=== PATIENT | female | born 1955 | race Two or more races ===

== ENCOUNTER 2017-07-23 12:55 | Emergency (ER) | payer MEDICARE ==
[2017-07-23 12:55] VITALS: BMI 25.9
[2017-07-23 13:10] VITALS: BP 130/77; PULSE 100; RESP 20; TEMP 97.7; O2SAT 100
[2017-07-23] MEDS ORDERED: Lidocaine 1% Inj (20ml) INFIL ONE (13:24)
[2017-07-23] MEDS ORDERED: Lidocaine 1% Inj (20ml) ONE (13:28)
[2017-07-23] MEDS ORDERED: Bacitracin 500 Units/gm Oint Foilpak UD TOP ONE (14:19)
[2017-07-23] MEDS ORDERED: Bacitracin 500 Units/gm Oint Foilpak UD ONE (14:22)
--- NOTE | 2017-07-23 17:44 | C.PDOC ---
History Of Present Illness 62 yr old female presents to the ER s/p trip and fall, complaining of 2 wounds to the right lower leg. Patient denies symptoms prior to the fall, head injury, LOC, neck pain, back pain, weakness or numbness. Time Seen by Provider: 07/23/17 13:12 Chief Complaint (Nursing): Lower Extremity Problem/Injury History Per: Patient History/Exam Limitations: no limitations Onset/Duration Of Symptoms: Sudden Onset Current Symptoms Are (Timing): Still Present Recent travel outside of the [place]: No Past Medical History Reviewed: Historical Data, Nursing Documentation, Vital Signs Vital Signs: Last Vital Signs Temp 97.7 F 07/23/17 13:06 Pulse 100 H 07/23/17 13:06 Resp 20 07/23/17 13:06 BP 130/77 07/23/17 13:06 Pulse Ox 100 07/23/17 17:47 - Medical History PMH: Anxiety, Asthma, COPD, Diabetes, Fibromyalgia, Fractures (ribs), Gastritis , HTN, Hypercholesterolemia, Osteoporosis, Peripheral Edema Surgical History: Back Surgery, Endoscopy - [facility] Procedures CLOSURE SKIN & SUBCUTANEOUS NEC (07/14/13) FLUOROSCOPY OF LEFT HEART USING LOW OSMOLAR CONTRAST (12/08/16) FLUOROSCOPY OF MULT COR ART USING L OSM CONTRAST (12/08/16) MEASURE OF CARDIAC SAMPL & PRESSURE, L HEART, PERC APPROACH (12/08/16) OTHER LOCAL DESTRUC SKIN (08/29/14) TETANUS TOXOID ADMINIST (07/14/13) Family History: States: No Known Family Hx - Social History Hx Tobacco Use: No Hx Alcohol Use: No Hx Substance Use: No - Immunization History Hx Tetanus Toxoid Vaccination: No Hx Influenza Vaccination: No Hx Pneumococcal Vaccination: No Review Of Systems Except As Marked, All Systems Reviewed And Found Negative. Musculoskeletal: Negative for: Neck Pain, Back Pain Skin: Positive for: Other (2 wounds to the right lower leg) Neurological: Negative for: Weakness, Numbness Physical Exam - Physical Exam Appears: Non-toxic, No Acute Distress Skin: Warm, Dry, No Rash, Other (Right Lower Leg - 1cm abrasion in diameter. 3cm laceration. ) Head: Atraumatic, Normacephalic Oral Mucosa: Moist Chest: Symmetrical, No Tenderness Cardiovascular: Rhythm Regular, No Murmur Respiratory: Normal Breath Sounds, No Rales, No Rhonchi, No Stridor, No Wheezing Extremity: Normal ROM, No Swelling Neurological/Psych: Oriented x3, Normal Speech, Normal Motor, Normal Sensation Gait: Steady ED Course And Treatment O2 Sat by Pulse Oximetry: 100 (RA) Pulse Ox Interpretation: Normal Progress Note: Wounds are cleaned and dressed with Bacitrain. Laceration - Laceration Repair Right Lower Leg Wound Length (In cm): 3 Description Of Wound: Linear Anesthesia: Lidocaine 1% Wound Examination: Irrigated With Saline, No Tendon Injury With Wound Exploration Wound Closure: Suture (6) Suture Technique And Material Used: Interrupted, Nylon (4-0) Wound Complexity: Simple Medical Decision Making Medical Decision Making: PLAN: * Clindamycin PO Disposition - Disposition Disposition: HOME/ ROUTINE Disposition Time: 14:20 Condition: IMPROVED Additional Instructions: Thank you for letting us take care of you today. Your provider was Dr. Fischer. You were treated for skin abrasions/laceration. The emergency medical care you received today was directed at your acute symptoms. If you were prescribed any medication, please fill it and take as directed. It may take several days for your symptoms to resolve. Return to the Emergency Department if your symptoms worsen, do not improve, or if you have any other problems. Please contact your doctor or call one of the physicians/clinics you have been referred to that are listed on the Patient Visit Information form that is included in your discharge packet. Bring any paperwork you were given at discharge with you along with any medications you are taking to your follow up visit. Our treatment cannot replace ongoing medical care by a primary care provider (PCP) outside of the emergency department. Thank you for allowing the [facility] team to be part of your care today. Follow up with your doctor or the emergency room in 7 days for suture removal. Follow up right away if there are signs of infection. Take the antibiotic as directed. Prescriptions: Clindamycin [Cleocin] 300 mg PO Q6 #20 cap Instructions: Care For Your Stitches (ED) Forms: [employer] (Singaporean) - Clinical Impression Clinical Impression: Laceration of leg - Scribe Statement The provider has reviewed the documentation as recorded by the Igor Rivers Provider Attestation: All medical record entries made by the Shahidibjack were at my direction and personally dictated by me. I have reviewed the chart and agree that the record accurately reflects my personal performance of the history, physical exam, medical decision making, and the department course for this patient. I have also personally directed, reviewed, and agree with the discharge instructions and disposition.
== END 2017-07-23 14:33 | disposition home or self-care (01) ==
LOC: C.ER 12:55
DX: S81.811A Laceration without foreign body, right lower leg, initial encounter (principal); W01.0XXA Fall on same level from slipping, tripping and stumbling without subsequent striking against object, initial encounter; Y93.89 Activity, other specified; Y92.89 Other specified places as the place of occurrence of the external cause

== ENCOUNTER 2017-07-30 08:44 | Emergency (ER) | payer MEDICARE ==
[2017-07-30 08:51] VITALS: BMI 24.7
[2017-07-30 08:55] VITALS: BP 122/78; PULSE 99; RESP 18; TEMP 97.3; O2SAT 98
--- NOTE | 2017-07-30 11:27 | C.PDOC ---
History Of Present Illness 62 yr old female presents to the ER for suture removal from the right lower leg which were placed 7 days ago. Patient denies drainage from the area, redness around the wound, fever, chills, weakness or numbness. Time Seen by Provider: 07/30/17 09:00 Chief Complaint (Nursing): Suture/Staple Removal History Per: Patient History/Exam Limitations: no limitations Onset/Duration Of Symptoms: Days Ago (7) Past Medical History Reviewed: Historical Data, Nursing Documentation, Vital Signs Vital Signs: Last Vital Signs Temp 97.3 F L 07/30/17 08:52 Pulse 99 H 07/30/17 08:52 Resp 18 07/30/17 08:52 BP 122/78 07/30/17 08:52 Pulse Ox 98 07/30/17 11:30 - Medical History PMH: Anxiety, Asthma, COPD, Diabetes, Fibromyalgia, Fractures (ribs), Gastritis , HTN, Hypercholesterolemia, Osteoporosis, Peripheral Edema Surgical History: Back Surgery, Endoscopy - [facility] Procedures CLOSURE SKIN & SUBCUTANEOUS NEC (07/14/13) FLUOROSCOPY OF LEFT HEART USING LOW OSMOLAR CONTRAST (12/08/16) FLUOROSCOPY OF MULT COR ART USING L OSM CONTRAST (12/08/16) MEASURE OF CARDIAC SAMPL & PRESSURE, L HEART, PERC APPROACH (12/08/16) OTHER LOCAL DESTRUC SKIN (08/29/14) TETANUS TOXOID ADMINIST (07/14/13) Family History: States: No Known Family Hx - Social History Hx Tobacco Use: No Hx Alcohol Use: No Hx Substance Use: No - Immunization History Hx Tetanus Toxoid Vaccination: No Hx Influenza Vaccination: No Hx Pneumococcal Vaccination: No Review Of Systems Except As Marked, All Systems Reviewed And Found Negative. Constitutional: Negative for: Fever, Chills Skin: Positive for: Other ((+) Sutures to felicia right lower leg) Neurological: Negative for: Weakness, Numbness Physical Exam - Physical Exam Appears: Non-toxic, No Acute Distress Skin: Warm, Dry, Other ((+) Right lower leg, well healed laceration with [address] Head: Atraumatic, Normacephalic Oral Mucosa: Moist Chest: Symmetrical, No Tenderness Cardiovascular: Rhythm Regular, No Murmur Respiratory: Normal Breath Sounds, No Rales, No Rhonchi, No Stridor, No Wheezing Extremity: Normal ROM, No Swelling Neurological/Psych: Oriented x3, Normal Speech, Normal Motor ED Course And Treatment O2 Sat by Pulse Oximetry: 98 (RA) Pulse Ox Interpretation: Normal Progress Note: 5 sutures were removed. Patient tolerated the procedure well. Disposition - Disposition Disposition: HOME/ ROUTINE Disposition Time: 09:05 Condition: GOOD Additional Instructions: Thank you for letting us take care of you today. Your provider was Dr. Fischer. You were treated for suture removal. The emergency medical care you received today was directed at your acute symptoms. If you were prescribed any medication, please fill it and take as directed. It may take several days for your symptoms to resolve. Return to the Emergency Department if your symptoms worsen, do not improve, or if you have any other problems. Please contact your doctor or call one of the physicians/clinics you have been referred to that are listed on the Patient Visit Information form that is included in your discharge packet. Bring any paperwork you were given at discharge with you along with any medications you are taking to your follow up visit. Our treatment cannot replace ongoing medical care by a primary care provider (PCP) outside of the emergency department. Thank you for allowing the [facility] team to be part of your care today. Use the steri-strips for the next 3-4 days until completed closed. Keep area clean and dry. Follow up with your primary doctor or the emergency room if you have any concerns. Instructions: Stitches Removal (ED) Forms: [employer] (Israeli) - Clinical Impression Clinical Impression: Removal of suture - Scribe Statement The provider has reviewed the documentation as recorded by the Scribe Racquel Rivers Provider Attestation: All medical record entries made by the Shahidibjack were at my direction and personally dictated by me. I have reviewed the chart and agree that the record accurately reflects my personal performance of the history, physical exam, medical decision making, and the department course for this patient. I have also personally directed, reviewed, and agree with the discharge instructions and disposition.
== END 2017-07-30 09:14 | disposition home or self-care (01) ==
LOC: C.ER 08:44
DX: Z48.02 Encounter for removal of sutures (principal)

== ENCOUNTER 2017-11-07 11:56 | Observation (INO) | payer MEDICARE ==
[2017-11-07 11:56] VITALS: BMI 24.7
[2017-11-07] MEDS ORDERED: Sodium Chloride 0.9% 500 ML IV ONE (13:21)
[2017-11-07 13:44] LABS: BASO # 0.1 K/uL (0.0-0.2); BASO % 0.4 % (0.0-2.0); EOS % 0.1 % (0.0-4.0); HEMOGLOBIN 13.4 g/dL (11.0-16.0); LYMPH # 1.9 K/uL (1.0-4.3); LYMPH % 14.5 % (20.0-40.0); MEAN CELL VOLUME 81.6 fL (81.0-99.0); MEAN CORPUSCULAR HEMOGLOBIN 27.2 pg (27.0-31.0); MEAN CORPUSCULAR HGB CONC 33.3 g/dL (33.0-37.0); MEAN PLATELET VOLUME 10.4 fL (7.2-11.7); MONO # 1.3 K/uL (0.0-0.8); MONO % 9.8 % (0.0-10.0); NEUT % 75.2 % (50.0-75.0); RBC 4.93 Mil/uL (3.80-5.20); RED CELL DISTRIBUTION WIDTH 13.8 % (11.5-14.5); WHITE BLOOD COUNT 13.3 K/uL (4.8-10.8)
--- NOTE | 2017-11-07 13:45 | RAD ---
PROCEDURE: CHEST RADIOGRAPH, 1 VIEW HISTORY: SOB COMPARISON: 12/06/2016 FINDINGS: LUNGS: Interval nodular contour characteristics suggested to prior near left basal atelectasis. Concomitant infiltrate here and/or progressive atelectatic changes or other pulmonary nodular parenchymal pathology needs to be considered. Shallow lung volumes. Smaller 2 to 4 mm pulmonary nodules left mid and upper lung zone noted. PLEURA: No pneumothorax. Trace left inferolateral pleural thickening and/or trace fluid probable. No prominent pleural effusion CARDIOVASCULAR: Minimal cardiomegaly no josefina pulmonary venous congestion OSSEOUS STRUCTURES: Bilateral shoulder arthrosis. Eft calcific rotator cuff tendinopathy versus calcific bursitis. Possible bone islands - glenoid and/or humeral head related VISUALIZED UPPER ABDOMEN: Normal. OTHER FINDINGS: None. IMPRESSION: Left basal nodular opacity (possible developing small infiltrate and/or rounded atelectasis here) with concomitant subsegmental discoid like atelectatic changes. Follow-up recommended Left mid and upper lung zone 2 to 4 mmnonspecific pulmonary nodules. The most inferior 1 appears present and 2014 Bilateral shoulder arthrosis -left calcific bursitis and/or calcific rotator cuff tendinopathy
[2017-11-07 14:04] LABS: ALB/GLOB RATIO 0.9 (1.0-2.1); ALBUMIN 3.8 g/dL (3.5-5.0); ALT/SGPT 29 U/L (9-52); AST/SGOT 23 U/L (14-36); BLOOD UREA NITROGEN 14 mg/dL (7-17); CALCIUM 7.8 mg/dl (8.6-10.4); GFR AFRICAN-AMERICAN > 60; GFR NON-AFRICAN AMERICAN > 60
[2017-11-07 14:11] LABS: B-TYPE NATRIURETIC PEPTIDE 203 pg/mL (0-900)
[2017-11-07 15:15] LABS: SQUAMOUS EPITHIAL 2 /hpf (0-5); URINE AMORPHOUS SEDIMENT RARE /ul (<OCC); URINE BILIRUBIN NEGATIVE (NEGATIVE); URINE BLOOD NEGATIVE (NEGATIVE); URINE CLARITY Hazy (Clear); URINE COLOR Amber (YELLOW); URINE GLUCOSE (UA) NORMAL (Normal); URINE LEUKOCYTE ESTERASE NEG Leu/uL (Negative); URINE NITRATE NEGATIVE (NEGATIVE); URINE PROTEIN 1+ mg/dL (NEGATIVE)
[2017-11-07] MEDS ORDERED: Azithromycin 500 MG in Sodium Chloride 0.9% 250 ML IVPB STA (15:23)
--- NOTE | 2017-11-07 17:01 | C.PDOC ---
History Of Present Illness 62 y/o female, with history of COPD, asthma, HTN, and diabetes, presents to the ER complaining of cough, nausea, and vomiting which has been present for 8 days. Patient reports that she has been vomiting 10 to 20 times a day.Patient states that she felt febrile but she did not take her temperature. Patient reports that she has associated chest pain w/ coughing and feels some SOB. Patient denies that she has any abdominal pain and any other medical complaints. Time Seen by Provider: 11/07/17 12:35 Chief Complaint (Nursing): Flu-like Symptoms History Per: Patient History/Exam Limitations: no limitations Onset/Duration Of Symptoms: Days Current Symptoms Are (Timing): Still Present Associated Symptoms: Cough, Nausea, Vomiting Past Medical History Reviewed: Historical Data, Nursing Documentation, Vital Signs Vital Signs: Last Vital Signs Temp 98.1 F 11/07/17 17:22 Pulse 105 H 11/07/17 17:22 Resp 18 11/07/17 17:22 BP 103/75 11/07/17 17:22 Pulse Ox 95 11/07/17 17:30 - Medical History PMH: Anxiety, Asthma, COPD, Diabetes, Fibromyalgia, Fractures (ribs), Gastritis , HTN, Hypercholesterolemia, Osteoporosis, Peripheral Edema Denies: Chronic Kidney Disease Surgical History: Back Surgery, Endoscopy - [facility] Procedures CLOSURE SKIN & SUBCUTANEOUS NEC (07/14/13) FLUOROSCOPY OF LEFT HEART USING LOW OSMOLAR CONTRAST (12/08/16) FLUOROSCOPY OF MULT COR ART USING L OSM CONTRAST (12/08/16) MEASURE OF CARDIAC SAMPL & PRESSURE, L HEART, PERC APPROACH (12/08/16) OTHER LOCAL DESTRUC SKIN (08/29/14) TETANUS TOXOID ADMINIST (07/14/13) Family History: States: No Known Family Hx - Social History Hx Tobacco Use: No Hx Alcohol Use: No Hx Substance Use: No - Immunization History Hx Tetanus Toxoid Vaccination: No Hx Influenza Vaccination: No Hx Pneumococcal Vaccination: No Review Of Systems Except As Marked, All Systems Reviewed And Found Negative. Constitutional: Negative for: Fever, Chills Respiratory: Positive for: Cough, Shortness of Breath Gastrointestinal: Positive for: Nausea, Vomiting. Negative for: Abdominal Pain , Diarrhea Physical Exam - Physical Exam Appears: Non-toxic, No Acute Distress, Other (mildly ill) Skin: Normal Color, Warm Head: Atraumatic, Normacephalic Eye(s): bilateral: Normal Inspection, PERRL Ear(s): Bilateral: Normal Nose: Normal Oral Mucosa: Moist Throat: Normal, No Erythema, No Exudate Neck: Supple Chest: Symmetrical Cardiovascular: Rhythm Regular Respiratory: Normal Breath Sounds, No Accessory Muscle Use, No Rales, No Wheezing Gastrointestinal/Abdominal: Normal Exam, Soft, No Tenderness Extremity: Normal ROM, No Tenderness, No Pedal Edema, No Swelling Neurological/Psych: Oriented x3, Normal Speech, Normal Cognition, Normal Motor, Normal Sensation ED Course And Treatment - Laboratory Results Result Diagrams: 11/07/17 13:30 11/07/17 13:30 O2 Sat by Pulse Oximetry: 95 (RA) Pulse Ox Interpretation: Normal - Other Rad No standard instances X-Ray: Viewed By Me, Read By Radiologist Interpretation: PROCEDURE: CHEST RADIOGRAPH, 1 VIEW. HISTORY: SOB. COMPARISON: 12/06/2016. FINDINGS: LUNGS: Interval nodular contour characteristics suggested to prior near left basal atelectasis. Concomitant infiltrate here and/or progressive atelectatic changes or other pulmonary nodular parenchymal pathology needs to be considered. Shallow lung volumes. Smaller 2 to 4 mm pulmonary nodules left mid and upper lung zone noted. PLEURA : No pneumothorax. Trace left inferolateral pleural thickening and/or trace fluid probable. No prominent pleural effusion. CARDIOVASCULAR: Minimal cardiomegaly no josefina pulmonary venous congestion. OSSEOUS STRUCTURES: Bilateral shoulder arthrosis. Eft calcific rotator cuff tendinopathy versus calcific bursitis. Possible bone islands - glenoid and/or humeral head related. VISUALIZED UPPER ABDOMEN: Normal. OTHER FINDINGS: None. IMPRESSION: Left basal nodular opacity (possible developing small infiltrate and/or rounded atelectasis here) with concomitant subsegmental discoid like atelectatic changes. Follow-up recommended. Left mid and upper lung zone 2 to 4 mmnonspecific pulmonary nodules. The most inferior 1 appears present and 2014. Bilateral shoulder arthrosis -left calcific bursitis and/or calcific rotator cuff tendinopathy Medical Decision Making Medical Decision Making: Impression: Influenza-like illness Plan: --CXR --Antibiotics --Nebulizer Treatment -- Observation Disposition Discussed With : Matt Juarez Counseled Patient/Family Regarding: Studies Performed - Disposition Disposition: HOSPITALIZED Disposition Time: 17:00 Condition: GUARDED - Clinical Impression Clinical Impression: Influenza-like illness, COPD exacerbation - Scribe Statement The provider has reviewed the documentation as recorded by the Scribe Jeanine Paniagua Provider Attestation: All medical record entries made by the Scribe were at my direction and personally dictated by me. I have reviewed the chart and agree that the record accurately reflects my personal performance of the history, physical exam, medical decision making, and the department course for this patient. I have also personally directed, reviewed, and agree with the discharge instructions and disposition. Decision To Admit - Pt Status Changed To: Hospital Disposition Of: Observation - . Bed Request Type: Regular Admitting Physician: Matt Juarez Patient Diagnosis: Influenza-like illness, COPD exacerbation
[2017-11-07] MEDS ORDERED: Albuterol-Ipratrop 3 mg / 0.5 (3 ml) UD ONE ×2 (17:34→20:09)
[2017-11-07] MEDS: Albuterol-Ipratrop 3 mg / 0.5 (3 ml) UD IH SCH (17:56)
[2017-11-07] MEDS ORDERED: Home Med 1 UNIT (Naproxen [Naprosyn] 1 TAB) PO PRN (19:23)
[2017-11-07] MEDS: Fluticasone-Salmeterol 250-50mcg Diskus IH SCH ×2 (19:29→20:06)
[2017-11-07] MEDS: Albuterol HFA 90 mcg/actuation (8 g) IH SCH ×2 (19:29→20:06)
[2017-11-07] MEDS: Albuterol-Ipratrop 3 mg / 0.5 (3 ml) UD INH SCH (20:10)
[2017-11-08] MEDS: (Novolog) Insulin Aspart, Recombinant 100 u/ml 10 ml vial SC SCH ×5 (00:02→21:36)
[2017-11-08] MEDS: Albuterol-Ipratrop 3 mg / 0.5 (3 ml) UD INH SCH ×7 (00:18→23:30)
[2017-11-08] MEDS ORDERED: Albuterol-Ipratrop 3 mg / 0.5 (3 ml) UD ONE (00:23)
[2017-11-08] MEDS: guaiFENesin 200 mg/10 ml Syrup UD PO PRN (04:05)
[2017-11-08 08:18] LABS: BASO % 0.1 % (0.0-2.0); HEMOGLOBIN 12.3 g/dL (11.0-16.0); LYMPH # 0.7 K/uL (1.0-4.3); LYMPH % 9.7 % (20.0-40.0); MEAN CELL VOLUME 80.1 fL (81.0-99.0); MEAN CORPUSCULAR HEMOGLOBIN 27.9 pg (27.0-31.0); MEAN CORPUSCULAR HGB CONC 34.8 g/dL (33.0-37.0); MEAN PLATELET VOLUME 10.1 fL (7.2-11.7); MONO # 0.2 K/uL (0.0-0.8); NEUT # 6.4 K/uL (1.8-7.0); NEUT % 87.2 % (50.0-75.0); PLATELET COUNT 201 K/uL (130-400); RBC 4.41 Mil/uL (3.80-5.20); RED CELL DISTRIBUTION WIDTH 13.8 % (11.5-14.5); WHITE BLOOD COUNT 7.4 K/uL (4.8-10.8)
[2017-11-08] MEDS: Fluticasone-Salmeterol 250-50mcg Diskus IH SCH ×2 (08:21→19:36)
[2017-11-08] MEDS: Albuterol HFA 90 mcg/actuation (8 g) IH SCH (08:21)
[2017-11-08 08:31] LABS: ALB/GLOB RATIO 1.1 (1.0-2.1); ALBUMIN 3.5 g/dL (3.5-5.0); ALT/SGPT 24 U/L (9-52); AST/SGOT 14 U/L (14-36); BLOOD UREA NITROGEN 19 mg/dL (7-17); CALCIUM 7.6 mg/dl (8.6-10.4); GFR AFRICAN-AMERICAN > 60; GFR NON-AFRICAN AMERICAN > 60
[2017-11-08 09:09] LABS: LYMPHOCYTE 10 % (20-40); MONOCYTE 6 % (0-10); NEUTROPHIL 84 % (50-75); PLATELET ESTIMATE NORMAL (NORMAL); TOTAL CELLS COUNTED 100
[2017-11-08 09:10] LABS: OVALOCYTES SLIGHT
[2017-11-08] MEDS ORDERED: Potassium Chloride 20 mEq ER Tab PO STA (09:23)
[2017-11-08] MEDS: Enoxaparin 30 mg Syringe SC SCH (09:45)
[2017-11-08] MEDS: MethylPREDNISolone 40 mg Vial IVP SCH ×2 (09:59→17:24)
[2017-11-08] MEDS ORDERED: CELECOXIB 50 MG PO SCH (10:00)
[2017-11-08] MEDS ORDERED: (Lantus) Insulin Glargine, Recombinant SC SCH (10:00)
[2017-11-08] MEDS ORDERED: ROSUVASTATIN CALCIUM PO SCH ×2 (10:00→18:00)
[2017-11-08] MEDS ORDERED: INSULIN LISPRO 15 UNIT SQ SCH (10:00)
[2017-11-08] MEDS: Pantoprazole 20 mg EC Tab PO SCH (10:28)
[2017-11-08] MEDS: Azithromycin 500 MG in Sodium Chloride 0.9% 250 ML IVPB SCH (10:29)
[2017-11-08] MEDS ORDERED: Home Med 1 UNIT (Naproxen [Naprosyn] 1 TAB) PO PRN (10:50)
[2017-11-08] MEDS ORDERED: Naproxen 550 mg Tab PO PRN (11:37)
[2017-11-08] MEDS ORDERED: (Novolog) Insulin Aspart, Recombinant 100 u/ml 10 ml vial SC SCH (14:00)
--- NOTE | 2017-11-08 16:44 | CP.PCM.PN ---
Subjective - Date & Time of Evaluation Date of Evaluation: 11/08/17 Time of Evaluation: 07:00 - Subjective Subjective: PGY2 medicine progress note for Dr. Juarez: Patient was seen and examined at bedside this morning. Patent stated she has had a nonproductive cough and shortness of breath since October 24. She admits to associated subjective fevers with mild nausea and vomiting. Per ED note she sated she vomited 20 times yesterday but denies vomiting over night. She states she is able to eat slowly. She denies headaches, changes in vision, chest pain, N diarrhea/constipation, numbness or tingling. Denied sick contacts. Patient is a former smoker but quit 40 years ago. Objective - Vital Signs/Intake and Output Vital Signs (last 24 hours): Temp Pulse Resp BP Pulse Ox 97.9 F 110 H 20 93/55 L 94 L 11/08/17 16:00 11/08/17 16:00 11/08/17 16:00 11/08/17 16:00 11/08/17 16:00 Intake and Output: 11/08/17 11/08/17 06:59 18:59 Intake Total 150 Balance 150 - Medications Medications: Current Medications Albuterol (Ventolin Hfa 90 Mcg/Actuation (8 G)) [address] [facility] Last Admin: 11/08/17 08:21 Dose: Not Given Albuterol/Ipratropium (Duoneb 3 Mg/0.5 Mg (3 Ml) Ud) [address] [facility] Last Admin: 11/08/17 15:48 Dose: 3 ml Celecoxib (Celebrex) [address] [facility] Enoxaparin Sodium (Lovenox) [address] [facility] Last Admin: 11/08/17 09:45 Dose: 30 mg Gabapentin (Neurontin) [address] [facility] Last Admin: 11/08/17 14:23 Dose: 400 mg Guaifenesin (Robitussin) 200 mg PO Q4H PRN PRN Reason: Cough and congestion Last Admin: 11/08/17 04:05 Dose: 200 mg Azithromycin 500 mg/ Sodium (Chloride) 250 mls @ 250 mls/hr IVPB DAILY [facility] Last Admin: 11/08/17 10:29 Dose: 250 mls/hr Insulin Aspart (Novolog) [address] [facility] PRN Reason: Protocol Last Admin: 11/08/17 12:00 Dose: 5 unit Insulin Aspart (Novolog) [address] [facility] Insulin Glargine (Lantus) [address] [facility] Last Admin: 11/08/17 09:44 Dose: 24 units Methylprednisolone (Solu-Medrol) [address] [facility] Last Admin: 11/08/17 09:59 Dose: 40 mg Naproxen (Anaprox Ds) 550 mg PO BID PRN PRN Reason: pain Pantoprazole Sodium (Protonix Ec Tab) [address] [facility] Last Admin: 11/08/17 10:28 Dose: 20 mg Rosuvastatin Calcium (Crestor) [address] [facility] Fluticasone/Salmeterol (Advair Diskus 250/50) [address] [facility] Last Admin: 11/08/17 08:21 Dose: Not Given Sitagliptin Phosphate (Januvia) [address] [facility] Last Admin: 11/08/17 09:44 Dose: 100 mg - Labs Labs: 11/08/17 08:03 - Constitutional Appears: Non-toxic, No Acute Distress - Head Exam Head Exam: ATRAUMATIC, NORMAL INSPECTION - Eye Exam Eye Exam: EOMI Pupil Exam: NORMAL ACCOMODATION - Respiratory Exam Respiratory Exam: Decreased Breath Sounds, Wheezes, NORMAL BREATHING PATTERN. absent: Accessory Muscle Use, Clear to Ausculation Bilateral, Rales, Rhonchi - Cardiovascular Exam Cardiovascular Exam: REGULAR RHYTHM, +S1, +S2. absent: JVD - GI/Abdominal Exam GI & Abdominal Exam: Soft, Normal Bowel Sounds. absent: Firm, Guarding, Tenderness - Extremities Exam Extremities Exam: absent: Calf Tenderness, Tenderness - Back Exam Back Exam: absent: CVA tenderness (L), CVA tenderness (R), paraspinal tenderness - Neurological Exam Neurological Exam: Alert, Awake, CN II-XII Intact, Oriented x3 Neuro motor strength exam: Left Upper Extremity: 5, Right Upper Extremity: 5, Left Lower Extremity: 5, Right Lower Extremity: 5 - Psychiatric Exam Psychiatric exam: Normal Mood - Skin Skin Exam: Dry, Intact, Warm Assessment and Plan - Assessment and Plan (Free Text) Assessment: COPD exacerbation O2 via NC prn Influenza negative Duonebs Robitussin prn cough Solu Medrol 40 mg IVP BID Advair R/O pneumonia f/u CT scan Chest X ray - possible Left infiltrate Azithromycin 500mg IVPB daily Ceftriaxone 1 gram IVPB daily f/u procalcitonin f/u legionella, myoplasma, s.pneumo Hyponatremia Na 129 f/u am labs f/u urine os, serum os, urine na Diabetes ISS Novolog 15 U SC TID Lantus 24 U SC daily Januvia 100mg PO daily Neurontin 400mg PO TID accuchecks achs hypoglycemia protocol f/u HbA1c Hyperlipidemia Crestor 40mg PO HS f/u lipid panel Fibromyalgia Celebrex 200mg PO daily Prophylactic Measures Protonix 20mg PO daily Lovenox 30mg SC daily Physical therapy
--- NOTE | 2017-11-08 20:07 | CT ---
EXAM: CT Chest Without Intravenous Contrast CLINICAL HISTORY: 62 years old, female; Signs and symptoms; Cough and shortness of breath; Symptoms not specified; Additional info: R/O pneumonia TECHNIQUE: Axial computed tomography images of the chest without intravenous contrast. All CT scans at this facility use one or more dose reduction techniques, viz.: automated exposure control; ma/kV adjustment per patient size (including targeted exams where dose is matched to indication; i.e. head); or iterative reconstruction technique. Coronal and sagittal reformatted images were created and reviewed. COMPARISON: No relevant prior studies available. FINDINGS: Limitations: Lack of intravenous contrast. Motion artifact - mild to moderate. Lungs: Mild atelectasis/scarring. Consolidation with air bronchograms within left lower lobe. Pleural space: No pneumothorax. No significant effusion. Heart: No cardiomegaly. No significant pericardial effusion. Mediastinum: Probable small hiatal hernia. Bones/joints: Few spiculated sclerotic bone lesions, likely bone islands. No acute fracture. Soft tissues: Unremarkable. Vasculature: Mild atherosclerotic disease. No aneurysm. Lymph nodes: No pathologically enlarged lymph nodes. IMPRESSION: 1. Probable LLL pneumonia. Followup to resolution to exclude underlying pathology. 2. Incidental/non-acute findings are described above.
[2017-11-09] MEDS: Albuterol-Ipratrop 3 mg / 0.5 (3 ml) UD INH SCH ×5 (03:13→19:23)
[2017-11-09 06:34] LABS: BASO # 0.1 K/uL (0.0-0.2); BASO % 0.6 % (0.0-2.0); HEMOGLOBIN 11.5 g/dL (11.0-16.0); LYMPH # 0.8 K/uL (1.0-4.3); LYMPH % 4.9 % (20.0-40.0); MEAN CELL VOLUME 80.7 fL (81.0-99.0); MEAN CORPUSCULAR HEMOGLOBIN 27.1 pg (27.0-31.0); MEAN CORPUSCULAR HGB CONC 33.6 g/dL (33.0-37.0); MEAN PLATELET VOLUME 10.4 fL (7.2-11.7); MONO # 0.6 K/uL (0.0-0.8); MONO % 3.3 % (0.0-10.0); NEUT # 15.6 K/uL (1.8-7.0); NEUT % 91.2 % (50.0-75.0); PLATELET COUNT 260 K/uL (130-400); RBC 4.24 Mil/uL (3.80-5.20); RED CELL DISTRIBUTION WIDTH 14.1 % (11.5-14.5); WHITE BLOOD COUNT 17.2 K/uL (4.8-10.8)
[2017-11-09 06:54] LABS: ALB/GLOB RATIO 1.1 (1.0-2.1); ALBUMIN 3.4 g/dL (3.5-5.0); ALT/SGPT 19 U/L (9-52); AST/SGOT 18 U/L (14-36); BLOOD UREA NITROGEN 25 mg/dL (7-17); CALCIUM 8.3 mg/dl (8.6-10.4); GFR AFRICAN-AMERICAN > 60; GFR NON-AFRICAN AMERICAN > 60; HDL CHOLESTEROL 28 mg/dL (30-70); MAGNESIUM 1.9 mg/dL (1.6-2.3)
[2017-11-09 07:00] LABS: LDL CHOLESTEROL 103 mg/dL (0-129)
[2017-11-09] MEDS: Albuterol HFA 90 mcg/actuation (8 g) IH SCH (07:29)
[2017-11-09] MEDS: Fluticasone-Salmeterol 250-50mcg Diskus IH SCH ×2 (07:29→19:53)
--- NOTE | 2017-11-09 08:03 | HP ---
HISTORY OF PRESENT ILLNESS: Patient chief complaint weakness, fatigue, tiredness, pneumonia. Patient came to the ER for admission. PHYSICAL EXAMINATION: GENERAL: The patient is awake, alert, oriented. VITAL SIGNS: Temperature 98, pulse 90. HEENT: Within normal limits. NECK: Supple. CHEST: Symmetrical. HEART: Regular. ABDOMEN: Soft. EXTREMITIES: No edema. IMPRESSION: Pneumonia and chronic obstructive pulmonary disease. PLAN: Patient to get bedrest, supportive care. Matt Juarez MD
[2017-11-09] MEDS: (Novolog) Insulin Aspart, Recombinant 100 u/ml 10 ml vial SC SCH ×7 (08:14→22:20)
[2017-11-09 08:37] LABS: BANDS 1 % (0-2); LYMPHOCYTE 4 % (20-40); MONOCYTE 5 % (0-10); NEUTROPHIL 90 % (50-75); TOTAL CELLS COUNTED 100
[2017-11-09 08:38] LABS: ANISOCYTOSIS SLIGHT; PLATELET ESTIMATE NORMAL (NORMAL)
[2017-11-09 08:40] LABS: HYPOCHROMIC SLIGHT; POLYCHROMIC SLIGHT; TEARDROP CELLS SLIGHT
--- NOTE | 2017-11-09 09:32 | CP.PCM.PN ---
Subjective - Date & Time of Evaluation Date of Evaluation: 11/09/17 Time of Evaluation: 07:00 - Subjective Subjective: PGY2 medicine progress note for Dr. Juarez: Patient was seen and examined at bedside this morning. Patent stated she still is short of breath but this is improving. She continues to have a productive cough. She said she as sweating all night. She reports not being able to eat much because she does not like the food that is offered to her. She will try to eat more today. She denies headaches, changes in vision, chest pain, N/V, diarrhea/constipation, numbness or tingling. Patient was encouraged to get out fo bed today and to wear the SCDs while in bed. Objective - Vital Signs/Intake and Output Vital Signs (last 24 hours): Temp Pulse Resp BP Pulse Ox 98.3 F 105 H 20 124/79 96 11/09/17 08:35 11/09/17 08:35 11/09/17 08:35 11/09/17 08:35 11/09/17 08:35 Intake and Output: 11/09/17 11/09/17 06:59 18:59 Intake Total 100 Balance 100 - Medications Medications: Current Medications Albuterol (Ventolin Hfa 90 Mcg/Actuation (8 G)) 2 puff IH RQ6 [facility] Last Admin: 11/09/17 07:29 Dose: Not Given Albuterol/Ipratropium (Duoneb 3 Mg/0.5 Mg (3 Ml) Ud) 3 ml INH RQ4 [facility] Last Admin: 11/09/17 07:27 Dose: 3 ml Celecoxib (Celebrex) 200 mg PO DAILY [facility] Enoxaparin Sodium (Lovenox) 30 mg SC DAILY [facility] Last Admin: 11/08/17 09:45 Dose: 30 mg Gabapentin (Neurontin) 400 mg PO TID [facility] Last Admin: 11/08/17 17:24 Dose: 400 mg Guaifenesin (Robitussin) 200 mg PO Q4H PRN PRN Reason: Cough and congestion Last Admin: 11/08/17 04:05 Dose: 200 mg Azithromycin 500 mg/ Sodium (Chloride) 250 mls @ 250 mls/hr IVPB DAILY [facility] Last Admin: 11/08/17 10:29 Dose: 250 mls/hr Ceftriaxone Sodium 1 gm/ (Sodium Chloride) 100 mls @ 100 mls/hr IVPB Q24H [facility] Last Admin: 11/08/17 19:06 Dose: 100 mls/hr Insulin Aspart (Novolog) 0 unit SC ACHS [facility] PRN Reason: Protocol Last Admin: 11/09/17 08:14 Dose: 3 unit Insulin Aspart (Novolog) 15 unit SC TID [facility] Last Admin: 11/08/17 17:24 Dose: 15 unit Insulin Glargine (Lantus) 24 unit SC DAILY [facility] Last Admin: 11/08/17 09:44 Dose: 24 units Methylprednisolone (Solu-Medrol) 40 mg IVP BID [facility] Last Admin: 11/08/17 17:24 Dose: 40 mg Naproxen (Anaprox Ds) 550 mg PO BID PRN PRN Reason: pain Pantoprazole Sodium (Protonix Ec Tab) 20 mg PO DAILY [facility] Last Admin: 11/08/17 10:28 Dose: 20 mg Rosuvastatin Calcium (Crestor) 40 mg PO HS [facility] Last Admin: 11/08/17 21:39 Dose: 40 mg Fluticasone/Salmeterol (Advair Diskus 250/50) 1 puff IH RQ12 [facility] Last Admin: 11/09/17 07:29 Dose: Not Given Sitagliptin Phosphate (Januvia) 100 mg PO DAILY [facility] Last Admin: 11/08/17 09:44 Dose: 100 mg - Labs Labs: 11/09/17 06:23 11/09/17 06:23 - Constitutional Appears: Non-toxic, No Acute Distress - Head Exam Head Exam: ATRAUMATIC, NORMAL INSPECTION - Eye Exam Eye Exam: EOMI - ENT Exam ENT Exam: Mucous Membranes Moist - Respiratory Exam Respiratory Exam: Decreased Breath Sounds (more in the left lower lobe), NORMAL BREATHING PATTERN. absent: Accessory Muscle Use, Chest Wall Tenderness, Clear to Ausculation Bilateral, Respiratory Distress - Cardiovascular Exam Cardiovascular Exam: REGULAR RHYTHM, +S1, +S2 - GI/Abdominal Exam GI & Abdominal Exam: Soft, Normal Bowel Sounds. absent: Distended, Firm, Guarding, Tenderness - Extremities Exam Extremities Exam: Normal Inspection. absent: Calf Tenderness, Pedal Edema - Back Exam Back Exam: NORMAL INSPECTION. absent: CVA tenderness (L), CVA tenderness (R), paraspinal tenderness - Neurological Exam Neurological Exam: Alert, Awake, CN II-XII Intact, Normal Gait, Oriented x3 Neuro motor strength exam: Left Upper Extremity: 5, Right Upper Extremity: 5, Left Lower Extremity: 5, Right Lower Extremity: 5 - Psychiatric Exam Psychiatric exam: Normal Affect, Normal Mood Assessment and Plan - Assessment and Plan (Free Text) Assessment: COPD exacerbation O2 via NC prn Influenza negative Duonebs Robitussin prn cough Solu Medrol 40 mg IVP BID Advair Start Spiriva Left lower lobe pneumonia CT scan 11/08 showed left lower lobe pneumonia (please see full report) Chest X ray - possible Left infiltrate Azithromycin 500mg IVPB daily (started 09/07 - Day #3) Ceftriaxone 1 gram IVPB daily (started 09/08 - Day #2) WBC 17.2, patient is on steriods as well f/u procalcitonin f/u legionella, myoplasma, s.pneumo f/u sputum culture Hyponatremia Na 129 f/u am labs f/u urine os, urine na Serum os 298 Diabetes Sugar are uncontrolled, is on steroids ISS Novolog 18 U SC TID (increased from 15) Lantus 28 U SC daily (increased from 24 Januvia 100mg PO daily Neurontin 400mg PO TID accuchecks achs hypoglycemia protocol HbA1c 6.2 Hyperlipidemia Crestor 40mg PO HS Tchol 148, Trig 129, LDL 103, HDL 28 Patient to take fish oil upon discharge Fibromyalgia Celebrex 200mg PO daily Prophylactic Measures Protonix 20mg PO daily Lovenox 30mg SC daily NS at 100 cc/hour Physical therapy
[2017-11-09] MEDS ORDERED: Sodium Chloride 0.9% 1,000 ML IV SCH (09:45)
[2017-11-09] MEDS ORDERED: CELECOXIB 50 MG PO SCH (10:00)
[2017-11-09] MEDS: MethylPREDNISolone 40 mg Vial IVP SCH ×2 (10:42→18:16)
--- NOTE | 2017-11-09 10:42 | CARD ---
APPROVED REPORT EKG Measurement Heart [id number] NC [id number] <Conclusion> Sinus tachycardia Rightward axis Nonspecific T wave abnormality Abnormal ECG
[2017-11-09] MEDS: Enoxaparin 30 mg Syringe SC SCH (10:43)
[2017-11-09] MEDS: Pantoprazole 20 mg EC Tab PO SCH (11:02)
[2017-11-09] MEDS: Azithromycin 500 MG in Sodium Chloride 0.9% 250 ML IVPB SCH (11:04)
[2017-11-09] MEDS: guaiFENesin 200 mg/10 ml Syrup UD PO PRN ×2 (12:40→22:24)
[2017-11-09] MEDS ORDERED: Albuterol HFA 90 mcg/actuation (8 g) INH PRN (13:15)
[2017-11-09] MEDS: Sodium Chloride 0.9% 1,000 ML IV SCH ×2 (18:20→20:00)
[2017-11-09] MEDS ORDERED: (Lantus) Insulin Glargine, Recombinant SC SCH (22:00)
[2017-11-09 23:42] LABS: OSMOLALITY,URINE 555 mosm/kg (300-1000)
[2017-11-10] MEDS: Albuterol-Ipratrop 3 mg / 0.5 (3 ml) UD INH SCH ×4 (00:24→11:20)
[2017-11-10] MEDS: (Novolog) Insulin Aspart, Recombinant 100 u/ml 10 ml vial SC SCH ×4 (07:30→13:33)
[2017-11-10] MEDS: Fluticasone-Salmeterol 250-50mcg Diskus IH SCH (07:42)
[2017-11-10] MEDS ORDERED: Tiotropium 18 mcg Cap For Inhalation INH SCH (08:00)
[2017-11-10 08:17] VITALS: BP 143/88; PULSE 97; RESP 97; TEMP 97.4; O2SAT 98
--- NOTE | 2017-11-10 09:28 | CP.PCM.PN ---
Subjective - Date & Time of Evaluation Date of Evaluation: 11/10/17 Time of Evaluation: 09:24 - Subjective Subjective: PGY2 medicine note for Dr. Juarez's service: Patient was seen and examined at bedside. Nursing reports no acute events overnight. Patient today states she feels much better, and is breathing without difficulty. She admits improved dry cough, and denies subjective fever, chills, SOB, abdominal pain, N/V/D/C. Pt tachycardic this AM, and screening labs show patient hyperthyroid. Pt denies weight loss, palpitations, tremors, nausea, thinning hair, confusion, or shortness of breath. Objective - Vital Signs/Intake and Output Vital Signs (last 24 hours): Temp Pulse Resp BP Pulse Ox 97.4 F L 97 H 97 H 143/88 98 11/10/17 07:35 11/10/17 07:35 11/10/17 07:35 11/10/17 07:35 11/10/17 07:35 Intake and Output: 11/10/17 11/10/17 06:59 18:59 Intake Total 1700 Balance 1700 - Medications Medications: Current Medications Albuterol (Ventolin Hfa 90 Mcg/Actuation (8 G)) 2 puff INH RQ6 PRN PRN Reason: Shortness of Breath Albuterol/Ipratropium (Duoneb 3 Mg/0.5 Mg (3 Ml) Ud) 3 ml INH RQ4 [facility] Last Admin: 11/10/17 07:41 Dose: 3 ml Azithromycin (Zithromax) 500 mg PO DAILY [facility] Last Admin: 11/09/17 12:40 Dose: 500 mg Celecoxib (Celebrex) 200 mg PO DAILY [facility] Last Admin: 11/09/17 10:42 Dose: 200 mg Enoxaparin Sodium (Lovenox) 30 mg SC DAILY [facility] Last Admin: 11/09/17 10:43 Dose: 30 mg Gabapentin (Neurontin) 400 mg PO TID [facility] Last Admin: 11/09/17 18:16 Dose: 400 mg Guaifenesin (Robitussin) 200 mg PO Q4H PRN PRN Reason: Cough and congestion Last Admin: 11/09/17 22:24 Dose: 200 mg Ceftriaxone Sodium 1 gm/ (Sodium Chloride) 100 mls @ 100 mls/hr IVPB Q24H [facility] Last Admin: 11/09/17 18:16 Dose: 100 mls/hr Sodium Chloride (Sodium Chloride 0.9%) 1,000 mls @ 100 mls/hr IV .Q10H [facility] Last Admin: 11/09/17 20:00 Dose: Not Given Insulin Aspart (Novolog) 0 unit SC ACHS [facility] PRN Reason: Protocol Last Admin: 11/09/17 22:20 Dose: Not Given Insulin Aspart (Novolog) 18 unit SC TID [facility] Last Admin: 11/09/17 18:21 Dose: Not Given Insulin Glargine (Lantus) 28 unit SC HS [facility] Last Admin: 11/09/17 22:24 Dose: 28 units Methylprednisolone (Solu-Medrol) 40 mg IVP BID [facility] Last Admin: 11/09/17 18:16 Dose: 40 mg Naproxen (Anaprox Ds) 550 mg PO BID PRN PRN Reason: pain Pantoprazole Sodium (Protonix Ec Tab) 20 mg PO DAILY [facility] Last Admin: 11/09/17 11:02 Dose: 20 mg Rosuvastatin Calcium (Crestor) 40 mg PO HS [facility] Last Admin: 11/09/17 22:27 Dose: 40 mg Fluticasone/Salmeterol (Advair Diskus 250/50) 1 puff IH RQ12 [facility] Last Admin: 11/10/17 07:42 Dose: Not Given Sitagliptin Phosphate (Januvia) 100 mg PO DAILY [facility] Last Admin: 11/09/17 10:42 Dose: 100 mg Tiotropium [place] (Spiriva) 18 mcg INH RQ24 [facility] - Labs Labs: 11/09/17 06:23 11/09/17 06:23 - Constitutional Appears: Non-toxic, No Acute Distress - Head Exam Head Exam: ATRAUMATIC, NORMAL INSPECTION - Eye Exam Eye Exam: EOMI Pupil Exam: PERRL - ENT Exam ENT Exam: Mucous Membranes Moist - Neck Exam Neck Exam: Full ROM. absent: Lymphadenopathy, Thyromegaly Additional comments: No goiter appreciated - Respiratory Exam Respiratory Exam: Clear to Ausculation Bilateral, NORMAL BREATHING PATTERN - Cardiovascular Exam Cardiovascular Exam: REGULAR RHYTHM, +S1, +S2 - GI/Abdominal Exam GI & Abdominal Exam: Soft, Normal Bowel Sounds. absent: Tenderness - Extremities Exam Extremities Exam: Normal Inspection. absent: Pedal Edema Additional comments: No tremor appreciated - Back Exam Back Exam: absent: CVA tenderness (L), CVA tenderness (R) - Neurological Exam Neurological Exam: Alert, Awake, Oriented x3 - Psychiatric Exam Psychiatric exam: Normal Affect, Normal Mood - Skin Skin Exam: Normal Color, Warm Assessment and Plan - Assessment and Plan (Free Text) Plan: Hyperthyroidism TSH 0.03 - pt tachycardic, but no tremor confusion, anxiety, weakness, increased perspiration or weight loss f/u EKG to assess for Atrial Fibrillation, which pt is at higher risk for COPD exacerbation O2 via [place] prn Influenza negative Duonebs Robitussin prn cough Solu Medrol 40 mg IVP BID Advair Start Spiriva Left lower lobe pneumonia CT scan 11/08 showed left lower lobe pneumonia (please see full report) Chest X ray - possible Left infiltrate Azithromycin 500mg IVPB daily (started 09/07 - Day #4) Ceftriaxone 1 gram IVPB daily (started 09/08 - Day #3) WBC elevated, patient is on steriods as well procalcitonin 0.16 legionella, myoplasma negative Hyponatremia Na 129; corrected with elevated glucose (132) f/u am labs Serum os 298 Diabetes HbA1c 6.2 Sugar are uncontrolled, is on steroids ISS Novolog 18 U SC TID (increased from 15) Lantus 28 U SC daily (increased from 24 Januvia 100mg PO daily Neurontin 400mg PO TID accuchecks achs hypoglycemia protocol Hyperlipidemia Crestor 40mg PO HS Tchol 148, Trig 129, LDL 103, HDL 28 Low HDL HDL 28 Patient to take fish oil upon discharge Fibromyalgia Celebrex 200mg PO daily Prophylactic Measures Protonix 20mg PO daily Lovenox 30mg SC daily NS at 100 cc/hour Physical therapy Disposition: Pt for discharge pending EKG. Pt does not have symptoms of overt hyperthyroidism, and will follow up as outpatient with her PMD due to have full thyroid workup. Milton Lopes PGY-2 All medical management per Dr. Juarez.
[2017-11-10] MEDS: Pantoprazole 20 mg EC Tab PO SCH (10:30)
[2017-11-10] MEDS: guaiFENesin 200 mg/10 ml Syrup UD PO PRN (10:39)
[2017-11-10] MEDS: MethylPREDNISolone 40 mg Vial IVP SCH (10:39)
[2017-11-10] MEDS: Enoxaparin 30 mg Syringe SC SCH (10:44)
[2017-11-11] MEDS ORDERED: Pneumococcal 23-Valent Vaccine IM ONE (14:00)
--- NOTE | 2017-11-11 23:39 | CARD ---
APPROVED REPORT EKG Measurement Heart [id number] [id number] <Conclusion> Sinus tachycardia Rightward axis Nonspecific T wave abnormality Abnormal ECG
== END 2017-11-10 14:11 | disposition home or self-care (01) ==
LOC: C.ER 11:56 → C.9E 17:01 → C.5S 23:00
PROVIDERS: ADMIT Internal Medicine Pulmonary Disease; ATTEND Internal Medicine Pulmonary Disease
DX: J18.9 Pneumonia, unspecified organism (principal); J44.1 Chronic obstructive pulmonary disease with (acute) exacerbation; J44.0 Chronic obstructive pulmonary disease with (acute) lower respiratory infection; E05.90 Thyrotoxicosis, unspecified without thyrotoxic crisis or storm; Z79.899 Other long term (current) drug therapy; Z79.4 Long term (current) use of insulin; Z79.51 Long term (current) use of inhaled steroids; Z79.52 Long term (current) use of systemic steroids; Z88.0 Allergy status to penicillin; Z88.2 Allergy status to sulfonamides; E87.1 Hypo-osmolality and hyponatremia; E11.65 Type 2 diabetes mellitus with hyperglycemia; M79.7 Fibromyalgia; M81.0 Age-related osteoporosis without current pathological fracture; I10 Essential (primary) hypertension; E78.00 Pure hypercholesterolemia, unspecified; Z87.891 Personal history of nicotine dependence
CPT/HCPCS: 36415; 71045; 71250; 80053; 80061; 81001; 82948; 83036; 83735; 83880; 83930; 83935; 84100; 84145; 84300; 84443; 84484; 85025; 86738; 87449; 87804; 93005; 94640; 94760; 96365; 96366; 96367; 96372; 96375; 96376; 99285; G0378; J0456; J0696; J1650; J2920; J2930; J7040; J7050